=== PATIENT | female | born 1990 | race Caucasian/White ===

== ENCOUNTER 2016-07-29 19:43 | Emergency (ER) | payer MEDICAID, OTHER ==
[~2016-07-29] VITALS: Ht 170.2 cm; Wt 75.0 kg
[2016-07-29 19:45] VITALS: BP 131/79; PULSE 92; RESP 16; TEMP 98; O2SAT 100
--- NOTE | 2016-07-29 21:23 | PD ---
HPI Chief Complaint: Back/ Neck Pain or Injury Time Seen by Provider: 21:18 Travel History International Travel<30 days: No Contact w/Intl Traveler<30days: No Traveled to known affect area: No History of Present Illness HPI 26-year-old white female with a 16 week IUP presents to emergency department with complaints of tailbone pain after a fall on Friday. She states that she was on her daughter's however board when she lost her balance falling onto her buttocks. Since then she's had pain in her tailbone. She denies any abdominal pain. No nausea vomiting. No leakage of fluid or vaginal bleeding. She states that she has had normal movement. No complications of the . No focal numbness, tingling or weakness. Pain is mild to moderate. More severe with sitting for long appears a time. PFSH Past Medical History Medical History: Denies Significant Hx Tetanus Vaccination: < 5 Years ?: Past Surgical History Narrative Surgical Social History Alcohol Use: No Tobacco Use: Yes Review of Systems Except as stated in HPI: all other systems reviewed are Neg Physical Exam Narrative GENERAL: Well-developed, well-nourished in no apparent distress. Nontoxic appearing. HEAD: Normocephalic, atraumatic. EYES: Pupils equal round and reactive. Extraocular motions intact. No scleral icterus. No injection or drainage. ENT: Nose clear. Throat without erythema, tonsillar hypertrophy or exudate. Uvula midline. Airway patent. NECK: Trachea midline. Supple, nontender, moves head freely. No central bony tenderness or spasm. CARDIOVASCULAR: Regular rate and rhythm without murmurs, gallops, or rubs. RESPIRATORY: Clear to auscultation. Breath sounds equal bilaterally. No wheezes , rales, or rhonchi. GASTROINTESTINAL: Abdomen soft, non-tender, gravid uterus. No guarding. EXTREMITIES: No clubbing, cyanosis, or edema. No joint tenderness. BACK: Tender in the lower sacrum without deformity. No flank tenderness. No saddle anesthesia. No thoracic or lumbar tenderness NEUROLOGICAL: Awake, alert and oriented x 3 .Cranial nerves grossly intact. Motor and sensory grossly within normal limits. Normal speech. Data Data Last Documented VS Vital Signs Date Time Temp Pulse Resp B/P Pulse Ox O2 Delivery O2 Flow Rate FiO2 07/29/16 19:45 98.0 92 16 131/79 100 Room Air [facility] Medical Decision Making Medical Screen Exam Complete: Yes Emergency Medical Condition: Yes Medical Record Reviewed: Yes Differential Diagnosis MDM: High Differential diagnoses: Fracture, sprain, strain, dislocation, contusion, neurovascular injury Narrative Course This is a 26-year-old female who fell on her buttocks on Friday. Clinically I suspect she has a coccyx fracture. Within early x-rays are not indicated. Opiates are not indicated. She is advised to use a doughnut and take Tylenol. Patient states understanding. This is coccyx fracture-clinical Diagnosis Primary Impression: cOCCYX FRACTURE-CLINICAL Patient Instructions: General Instructions Additional Instructions: Rest. Ice for the next 3 days followed by heat . Tylenol. Jitendra as discussed.. Follow-up with your OB doctor in one week. Return to the ER for emergencies. Med/Other Pt SpecificInfo: No Meds Exist/No RX given Disposition: 01 DISCHARGE HOME Condition: Stable Vega Marcial Jul 29, 2016 21:23
== END 2016-07-29 21:34 | disposition home or self-care (01) ==
LOC: NEPB 19:43
DX: O9A.212 Injury, poisoning and certain other consequences of external causes complicating pregnancy, second trimester (principal); S32.2XXA Fracture of coccyx, initial encounter for closed fracture; V00.181A Fall from other rolling-type pedestrian conveyance, initial encounter; Z3A.16 16 weeks gestation of pregnancy
CPT/HCPCS: 99283

== ENCOUNTER 2016-10-30 13:27 | Emergency (ER) | payer MEDICAID ==
[~2016-10-30] VITALS: Ht 170.2 cm; Wt 70.0 kg
[2016-10-30 13:28] VITALS: BP 139/70; PULSE 63; RESP 16; TEMP 98.6; O2SAT 96
--- NOTE | 2016-10-30 13:45 | PD ---
Physical Exam Time Seen by Provider: 13:43 Narrative 26yo F c/o sore throat, congestion, cough x 4 days. Denies fever. Kids are sick too. Hx Asthma. Patient seen in triage. VS reviewed. Awaiting bed placement. Data Data Last Documented VS Vital Signs Date Time Temp Pulse Resp B/P Pulse Ox O2 Delivery O2 Flow Rate FiO2 10/30/16 13:28 98.6 63 16 139/70 96 Room Air MDM Supervised Visit with EVELYN: No Scripts No Active Prescriptions or Reported Meds Heidi Zhang Oct 30, 2016 13:45
--- NOTE | 2016-10-30 14:31 | PD ---
HPI . cold symptoms, cough and congestion for 4 days Chief Complaint: Cold / Flu Symptoms Time Seen by Provider: 14:28 Travel History International Travel<30 days: No Contact w/Intl Traveler<30days: No Traveled to known affect area: No History of Present Illness HPI 26-year-old female who is currently breast-feeding her 6-week-old baby here with complaints of cold symptoms, cough, facial pressure and congestion for the past 4 days. Patient tells me that several other family members are sick and she thinks she may have picked it up from them. She denies any fever or chills. She is a smoker, but tells me she is trying to cut down. PFSH Past Medical History Respiratory: Yes (ASTHMA) ?: Not LMP: 10/30/16 Social History Alcohol Use: No Tobacco Use: Yes Substance Use: No Allergies-Medications (Allergen,Severity, Reaction): Coded Allergies: Augmentin (Verified Allergy, Severe, Anaphylaxis, 10/30/16) Naproxen (Verified Allergy, Severe, Anaphylaxis, 10/30/16) Penicillin (Verified Allergy, Severe, Anaphylaxis, 10/30/16) Reported Meds & Prescriptions Reported Meds & Active Scripts Active Proair Hfa 8.5 GM Inh (Albuterol Sulfate) 90 Mcg/Act Aer 2 Puff INH Q6H PRN 108 mcg/actuation Zithromax Z-Chintan (Azithromycin) 250 Mg Dspk 250 Mg PO DIRECTED 500 MG (2 tabs) day 1, then 1 tab days 2-5. Prednisone 50 Mg Tab 50 Mg PO DAILY Reported [advair ] Review of Systems General / Constitutional: No: Fever Eyes: No: Visual changes HENT: Positive: Congestion, No: Headaches Cardiovascular: No: Chest Pain or Discomfort Respiratory: Positive: Cough, Wheezing, No: Shortness of Breath Gastrointestinal: No: Abdominal Pain Genitourinary: No: Dysuria Musculoskeletal: No: Pain Skin: No Rash Neurologic: No: Weakness Psychiatric: No: Depression Endocrine: No: Polydipsia Hematologic/Lymphatic: No: Easy Bruising Physical Exam Narrative GENERAL: AAO x 3, no acute distress, Well-nourished, well-developed patient. SKIN: Warm and dry. No visible rashes or bruising. HEAD: Normocephalic and atraumatic. EYES: No scleral icterus. No injection or drainage. EOM intact, PERRLA ENT: No nasal drainage noted. Mucous membranes pink. Airway patent. TM clear effusions b/l, + frontal and maxillary sinus tenderness. No oropharynx abnormality NECK: Supple, trachea midline. No JVD. No lymphadenopathy CARDIOVASCULAR: Regular rate and rhythm without murmurs, gallops, or rubs. RESPIRATORY: Breath sounds equally diminished bilaterally, expiratory wheezing very mild on exam, no rhonchi or Rales GASTROINTESTINAL: Visual inspection normal EXTREMITIES: No cyanosis or edema. BACK: Nontender without obvious deformity. No CVA tenderness. PSYCH: AAO x 3, normal affect. Data Data Last Documented VS Vital Signs Date Time Temp Pulse Resp B/P Pulse Ox O2 Delivery O2 Flow Rate FiO2 10/30/16 14:35 98.5 65 12 146/85 96 Room Air MDM Medical Decision Making Medical Screen Exam Complete: Yes Emergency Medical Condition: Yes Medical Record Reviewed: Yes Differential Diagnosis Sinusitis, bronchitis, less likely pneumonia, less likely influenza, acute pharyngitis Narrative Course This is a 26-year-old female here with complaints of cold like symptoms and congestion for the past several days. On examination she appears to have an acute sinusitis along with acute bronchitis. She is currently breast-feeding and I've discussed the medications that the treatment plan with her. Although they are all noted as safe during , there is some risk associated with usage. I've discussed this with her. Advise follow-up with her primary care provider. Patient verbalized understanding of instructions, questions were answered, and thanked me for their care. I advised them if their condition worsens, please return to the nearest emergency room for further care. Diagnosis Primary Impression: Acute sinusitis Qualified Code: J01.90 - Acute non-recurrent sinusitis, unspecified location Additional Impression: Acute bronchitis Qualified Code: J20.9 - Acute bronchitis, unspecified organism Patient Instructions: General Instructions Additional Instructions: As we discussed the cough can last 6-8 weeks. Take medications as prescribed. If you are a smoker, try to quit. Follow up with your primary care provider. If you develop sudden onset or worsening of shortness or breath, please go to the nearest emergency room. Please return to emergency department if your symptoms return or worsen. Follow up with your primary care provider. Take medications as prescribed. As we discussed, these medications can cross into your breast milk. Please discuss further with the pharmacist. You may need to pump and dump. Med/Other Pt SpecificInfo: Prescription(s) given Scripts Albuterol 8.5 GM Inh (Proair Hfa 8.5 GM Inh)90 Mcg/Act Aer2 Puff INH Q6H PRN ( SHORTNESS OF BREATH) #1 INHALER Ref 0 108 mcg/actuation Prov:Itzel Bowman MD 10/30/16 Azithromycin (Zithromax Z-Chintan)250 Mg [id number] Mg PO DIRECTED #1 DSPK 500 MG (2 tabs) day 1, then 1 tab days 2-5. Prov:Itzel Bowman MD 10/30/16 Prednisone 50 Mg Tab50 Mg PO DAILY #5 TAB Prov:Itzel Bowman MD 10/30/16 Disposition: 01 DISCHARGE HOME Condition: Stable Madison Olsen Oct 30, 2016 14:31
[2016-10-30] MEDS ORDERED: advair (14:34)
[2016-10-30 14:35] VITALS: BP 146/85; PULSE 65; RESP 12; TEMP 98.5; O2SAT 96
[2016-10-30] MEDS ORDERED: PRED50 PO (14:38)
[2016-10-30] MEDS ORDERED: ALBUAER3 INH (14:38)
[2016-10-30] MEDS ORDERED: ZITHTAB PO (14:38)
== END 2016-10-30 15:09 | disposition home or self-care (01) ==
LOC: NEPD 13:27
DX: J01.90 Acute sinusitis, unspecified (principal); J20.9 Acute bronchitis, unspecified; Z72.0 Tobacco use
CPT/HCPCS: 99284

== ENCOUNTER 2016-12-07 13:22 | Emergency (ER) | payer MEDICAID ==
[~2016-12-07] VITALS: Ht 170.2 cm; Wt 72.5 kg
[~2016-12-07 13:22] MED LIST: ALBUAER3 INH; PRED50 PO; ZITHTAB PO; advair
[2016-12-07 13:24] VITALS: BP 125/96; PULSE 122; RESP 24; TEMP 98.1; O2SAT 97
--- NOTE | 2016-12-07 13:41 | PD ---
Physical Exam Date Seen by Provider: Dec 07, 2016 Time Seen by Provider: 13:39 Narrative 26 yr old female with history of asthma here with c/o chills, coughing with lots of mucous production. She also reports head pounding. SHe says her symptoms that started yesterday. She states she has been using so much of her albuterol she ran out of it. She denies any recent travel. Patient is 10 weeks post and . She is awaiting bed placement. Data Data Last Documented VS Vital Signs Date Time Temp Pulse Resp B/P Pulse Ox O2 Delivery O2 Flow Rate FiO2 12/07/16 13:24 98.1 122 24 125/96 97 Room Air [facility] Medical Record Reviewed: Yes Supervised Visit with EVELYN: Madison Snyder Dec 07, 2016 13:41
[2016-12-07] MEDS ORDERED: RESP: BUDESONIDE 0.5 MG/2 ML NEB NEB ONE (14:00)
[2016-12-07] MEDS ORDERED: methylPREDNISolone SOD SUCC 125 MG/2 ML VIAL IVP ONE (14:00)
[2016-12-07] MEDS ORDERED: SODIUM CHLORIDE 0.9% FLUSH 10 ML FLUSH IVF PRN (14:00)
[2016-12-07 14:10] VITALS: O2SAT 98
[2016-12-07 14:17] LABS: AUTOMATED NEUTROPHIL # 5.2 TH/MM3 (1.8-7.7); BASOPHIL # 0.1 TH/MM3 (0-0.2); BASOPHIL % 1.1 % (0.0-2.0); EOSINOPHIL # 0.9 TH/MM3 (0-0.4); EOSINOPHIL % 9.3 % (0.0-4.0); HEMO FLAGS DIFF FINAL; LYMPH % 23.8 % (9.0-44.0); LYMPHOCYTE # 2.2 TH/MM3 (1.0-4.8); MEAN CELL VOLUME 85.2 FL (80.0-100.0); MEAN CORPUSCULAR HEMOGLOBIN 28.1 PG (27.0-34.0); MONO % 9.9 % (0.0-8.0); NEUT % 55.9 % (16.0-70.0); PLATELET COUNT 294 TH/MM3 (150-450); RED BLOOD COUNT 4.81 MIL/MM3 (4.00-5.30); RED CELL DISTRIBUTION WIDTH 16.1 % (11.6-17.2); WHITE BLOOD COUNT 9.3 TH/MM3 (4.0-11.0)
--- NOTE | 2016-12-07 14:22 | PD ---
HPI Chief Complaint: Cold / Flu Symptoms Time Seen by Provider: 14:11 Travel History International Travel<30 days: No Contact w/Intl Traveler<30days: No Traveled to known affect area: No History of Present Illness HPI Patient is a 26-year-old female presented to emergency evaluation of shortness of breath, chest congestion, pain, subjective fevers and chills that started yesterday. Patient reports a history of asthma and states that her albuterol inhaler has not been working nor has her nebulizer treatments. She is 10 weeks , a current smoker. She denies any nausea, vomiting. PFSH Past Medical History Hx Anticoagulant Therapy: No Asthma: Yes Cardiovascular Problems: No Chemotherapy: No Cerebrovascular Accident: No Diabetes: No Tetanus Vaccination: < 5 Years ?: Not LMP: post 10 weeks Tubal Ligation: Yes Past Surgical History Section: Yes (x4) Social History Alcohol Use: No Tobacco Use: Yes Substance Use: No Allergies-Medications (Allergen,Severity, Reaction): Coded Allergies: Augmentin (Verified Allergy, Severe, Anaphylaxis, 10/30/16) Naproxen (Verified Allergy, Severe, Anaphylaxis, 10/30/16) Penicillin (Verified Allergy, Severe, Anaphylaxis, 10/30/16) Reported Meds & Prescriptions Reported Meds & Active Scripts Active Proair Hfa 8.5 GM Inh (Albuterol Sulfate) 90 Mcg/Act Aer 2 Puff INH Q6H PRN 108 mcg/actuation Review of Systems Except as stated in HPI: all other systems reviewed are Neg General / Constitutional: Positive: Fever (SUBJECTIVE), Chills HENT: No: Headaches Cardiovascular: Positive: Chest Pain or Discomfort, Tachycardia, Dyspnea on exertion Respiratory: Positive: Cough, Shortness of Breath, Wheezing, Pleuritic Pain Gastrointestinal: No: Nausea, Vomiting, Diarrhea, Abdominal Pain Musculoskeletal: No: Myalgias Physical Exam Narrative GENERAL: Well-developed, well-nourished, alert female. Resting in no acute distress. SKIN: Warm and dry. HEAD: Atraumatic. Normocephalic. EYES: Pupils equal and round. No scleral icterus. No injection or drainage. ENT: No nasal bleeding or discharge. Mucous membranes pink and moist. NECK: Trachea midline. No JVD. CARDIOVASCULAR: Tachycardic RESPIRATORY: Tachypneic, expiratory wheezing throughout. No nasal flaring, no retractions noted. GASTROINTESTINAL: Abdomen soft, non-tender, nondistended. Hepatic and splenic margins not palpable. MUSCULOSKELETAL: Extremities without clubbing, cyanosis, or edema. No obvious deformities. NEUROLOGICAL: Awake and alert. No obvious cranial nerve deficits. Motor grossly within normal limits. Five out of 5 muscle strength in the arms and legs. Normal speech. PSYCHIATRIC: Appropriate mood and affect; insight and judgment normal. Data Data Last Documented VS Vital Signs Date Time Temp Pulse Resp B/P Pulse Ox O2 Delivery O2 Flow Rate FiO2 12/07/16 14:10 98 Room Air 12/07/16 13:24 98.1 122 24 125/96 Orders Complete Blood Count With Diff (12/07/16 13:54) Comprehensive Metabolic Panel (12/07/16 13:54) Iv Access Insert/Monitor (12/07/16 13:54) Electrocardiogram (12/07/16 13:54) Ecg Monitoring (12/07/16 13:54) Oximetry (12/07/16 13:54) Oxygen Administration (12/07/16 13:54) Chest, Single Ap (12/07/16 13:54) Sodium Chloride 0.9% Flush (Ns Flush) (12/07/16 14:00) Methylprednisolone So Succ Inj (Solumedr (12/07/16 14:00) Albuterol-Ipratropium Neb (Duoneb Neb) (12/07/16 14:00) Budesonide Neb (Pulmicort Respule Neb) (12/07/16 14:00) Ct Pulmonary Angiogram (12/07/16 ) Labs Laboratory Tests Test 12/07/16 14:10 White Blood Count 9.3 TH/MM3 Red Blood Count 4.81 MIL/MM3 Hemoglobin 13.5 GM/DL Hematocrit 41.0 % Mean Corpuscular Volume 85.2 FL Mean Corpuscular Hemoglobin 28.1 PG Mean Corpuscular Hemoglobin 33.0 % Concent Red Cell Distribution Width 16.1 % Platelet Count 294 TH/MM3 Mean Platelet Volume 7.6 FL Neutrophils (%) (Auto) 55.9 % Lymphocytes (%) (Auto) 23.8 % Monocytes (%) (Auto) 9.9 % Eosinophils (%) (Auto) 9.3 % Basophils (%) (Auto) 1.1 % Neutrophils # (Auto) 5.2 TH/MM3 Lymphocytes # (Auto) 2.2 TH/MM3 Monocytes # (Auto) 0.9 TH/MM3 Eosinophils # (Auto) 0.9 TH/MM3 Basophils # (Auto) 0.1 TH/MM3 CBC Comment DIFF FINAL Differential Comment Sodium Level 138 MEQ/L Potassium Level 4.2 MEQ/L Chloride Level 106 MEQ/L Carbon Dioxide Level 26.2 MEQ/L Anion Gap 6 MEQ/L Blood Urea Nitrogen 9 MG/DL Creatinine 0.72 MG/DL Estimat Glomerular Filtration 96 ML/MIN Rate Random Glucose 91 MG/DL Calcium Level 9.4 MG/DL Total Bilirubin 0.6 MG/DL Aspartate Amino Transf 36 U/L (AST/SGOT) Alanine Aminotransferase 46 U/L (ALT/SGPT) Alkaline Phosphatase 66 U/L Total Protein 8.4 GM/DL Albumin 4.3 GM/DL MDM Medical Decision Making Medical Screen Exam Complete: Yes Emergency Medical Condition: Yes Interpretation(s) Vital Signs Date Time Temp Pulse Resp B/P Pulse Ox O2 Delivery O2 Flow Rate FiO2 12/07/16 13:24 98.1 122 24 125/96 97 Room Air Differential Diagnosis Pulmonary embolism versus cardiomyopathy versus asthma exacerbation versus pneumonia versus other Narrative Course Patient is a 26-year-old female presenting for evaluation of shortness of breath , wheezing. Patient is a 10 week smoker. Included in the differential would be cardiomyopathy, pulmonary embolism, and more likely asthma exacerbation. EKG shows sinus rhythm with sinus arrhythmia, right atrial enlargement, possible left atrial enlargement, heart rate 88 Labs and imaging were ordered and pending. Chest x-ray shows no acute disease, labs are unremarkable. CT pulmonary angiogram pending. 1600- patient states she needed to leave to bring her to work. Discussed with patient the possible differential so we were concerned regarding pulmonary embolism cardiomyopathy. Discussed risks of leaving with patient. She states that she would come back to have the testing completed. She would need to check back and that she would be leaving AGAINST MEDICAL ADVICE at this time. She verbalized understanding of this. AMA: The risks of leaving against medical advice without further evaluation treatment were discussed with the patient. These risks include cardiac dysfunction, cardiac dysrhythmia, possible heart attack, possible stroke or . The patient indicated understanding of these risks and appeared to have the capacity to make this decision. Diagnosis Primary Impression: Left against medical advice Disposition: AGAINST MEDICAL ADVICE Marge Zapata Dec 07, 2016 14:21
[2016-12-07] MEDS: RESP: ALBUTEROL 2.5 MG/IPRATROPIUM 0.5 MG NEB (SCH) INH (14:29)
[2016-12-07 14:37] LABS: ANION GAP 6 MEQ/L (5-15); AST (GOT) 36 U/L (15-37); BICARBONATE 26.2 MEQ/L (21.0-32.0); BLOOD UREA NITROGEN 9 MG/DL (7-18); CHLORIDE 106 MEQ/L (98-107); GLOMERULAR FILTRATION RATE 96 ML/MIN (>89); POTASSIUM 4.2 MEQ/L (3.5-5.1); SODIUM (NA) 138 MEQ/L (136-145)
[2016-12-07 14:38] LABS: ALT (GPT) 46 U/L (10-53)
[2016-12-07 14:40] LABS: ALKALINE PHOSPHATASE 66 U/L (45-117); TOTAL BILIRUBIN ADULT 0.6 MG/DL (0.2-1.0)
--- NOTE | 2016-12-07 14:51 | RADRPT ---
EXAM DATE/TIME: 12/07/2016 14:21 [place] COMPARISON: No previous studies available for comparison. INDICATIONS : Short of breath, chest tightness, cough. MEDICAL HISTORY : Asthma SURGICAL HISTORY : None. ENCOUNTER: Initial ACUITY: 4 - 6 days PAIN SCORE: 2/10 LOCATION: Bilateral upper chest FINDINGS: The lungs are clear without infiltrate, nodule, or mass. There is no appreciable pleural effusion fo r technique. Heart and mediastinum are unremarkable. CONCLUSION: No acute cardiopulmonary disease. Evelio Holbrook MD on December 07, 2016 at 14:49 Board Certified Radiologist. This report was verified electronically.
[2016-12-07] MEDS ORDERED: BENZ100 PO (17:57)
[2016-12-07] MEDS ORDERED: ZITHTAB PO (17:57)
[2016-12-07] MEDS ORDERED: PRED50 PO (17:57)
[2016-12-07] MEDS ORDERED: VENTAER INH (17:57)
== END 2016-12-07 16:09 | disposition left against medical advice (07) ==
LOC: NEPD 13:22
DX: R06.02 Shortness of breath (principal); J45.909 Unspecified asthma, uncomplicated; O99.335 Smoking (tobacco) complicating the puerperium; F17.210 Nicotine dependence, cigarettes, uncomplicated
CPT/HCPCS: 71010; 80053; 85025; 94640; 94664; 96374; 99285; J2930; J7626

== ENCOUNTER 2016-12-07 17:22 | Emergency (ER) | payer MEDICAID ==
[~2016-12-07] VITALS: Ht 170.2 cm; Wt 75.0 kg
[2016-12-07 17:23] VITALS: BP 134/76; PULSE 97; RESP 20; TEMP 98.4; O2SAT 95
--- NOTE | 2016-12-07 17:49 | PD ---
HPI . coughing, congestion Chief Complaint: Cold / Flu Symptoms Time Seen by Provider: 17:46 Travel History International Travel<30 days: No Contact w/Intl Traveler<30days: No Traveled to known affect area: No History of Present Illness HPI This is a 26-year-old female who I initially saw earlier today in triage with a history of asthma complaining of chills, coughing with a lot of mucus production , and headache. Apparently patient had to leave due to some personal reasons and she is now back for care. Patient tells me she's been using so much of her albuterol inhaler that she ran out of it. Patient is 10 weeks and breast-feeding. She was seen here and had labs and cxr done. She has no new issues. PFSH Past Medical History Hx Anticoagulant Therapy: No Asthma: Yes Cardiovascular Problems: No Chemotherapy: No Cerebrovascular Accident: No Diabetes: No Tubal Ligation: Yes Past Surgical History Section: Yes (x4) Social History Alcohol Use: No Tobacco Use: Yes Substance Use: No Allergies-Medications (Allergen,Severity, Reaction): Coded Allergies: Augmentin (Verified Allergy, Severe, Anaphylaxis, 10/30/16) Naproxen (Verified Allergy, Severe, Anaphylaxis, 10/30/16) Penicillin (Verified Allergy, Severe, Anaphylaxis, 10/30/16) Reported Meds & Prescriptions Reported Meds & Active Scripts Active Tessalon Perles (Benzonatate) 100 Mg Cap 100 Mg PO TID PRN 5 Days Ventolin Hfa 18 GM Inh (Albuterol Sulfate) 90 Mcg/Act Aer 2 Puff INH Q6H PRN Prednisone 50 Mg Tab 50 Mg PO DAILY Zithromax Z-Chintan (Azithromycin) 250 Mg Dspk 250 Mg PO DIRECTED 500 MG (2 tabs) day 1, then 1 tab days 2-5. Proair Hfa 8.5 GM Inh (Albuterol Sulfate) 90 Mcg/Act Aer 2 Puff INH Q6H PRN 108 mcg/actuation Review of Systems General / Constitutional: No: Fever Eyes: No: Visual changes HENT: Positive: Headaches, Congestion Cardiovascular: No: Chest Pain or Discomfort Respiratory: Positive: Cough, No: Shortness of Breath Gastrointestinal: No: Abdominal Pain Genitourinary: No: Dysuria Musculoskeletal: No: Pain Skin: No Rash Neurologic: No: Weakness Psychiatric: No: Depression Endocrine: No: Polydipsia Hematologic/Lymphatic: No: Easy Bruising Physical Exam Narrative GENERAL: AAO x 3, no acute distress, Well-nourished, well-developed patient. SKIN: Warm and dry. No visible rashes or bruising. HEAD: Normocephalic and atraumatic. EYES: No scleral icterus. No injection or drainage. ENT: No nasal drainage noted. Mucous membranes pink. Airway patent. Mild posterior pharynx erythema, bulging TMs bilaterally with clear effusion. Maxillary sinus tenderness on palpation NECK: Supple, trachea midline. No JVD. No lymphadenopathy CARDIOVASCULAR: Regular rate and rhythm without murmurs, gallops, or rubs. RESPIRATORY: Breath sounds equally diminished bilaterally, rhonchi scattered throughout along with wheezing. GASTROINTESTINAL: Abdomen soft, non-tender, nondistended. EXTREMITIES: No cyanosis or edema. No edema the lower extremities. Pulses intact. BACK: No obvious deformity. No CVA tenderness. NEURO: CN II-12 intact, PSYCH: AAO x 3, normal affect. Data Data Last Documented VS Vital Signs Date Time Temp Pulse Resp B/P Pulse Ox O2 Delivery O2 Flow Rate FiO2 12/07/16 17:41 12/07/16 17:23 98.4 97 20 95 Room Air MDM Medical Decision Making Medical Screen Exam Complete: Yes Emergency Medical Condition: Yes Medical Record Reviewed: Yes Differential Diagnosis Acute sinusitis, bronchitis, less likely pneumonia, less likely pulmonary emboli Narrative Course 26-year-old female here with what appears to be sinusitis and bronchitis. She already received some workup earlier today. Her labs are unremarkable. She does not have any elevated white count. Her chest x-ray was normal and no acute findings. She had been recommended to stay for further workup, but had to leave due to personal issues. I've explained to patient that I do not believe she has a blood clot as her symptomatology is very consistent with sinusitis and bronchitis. She has distinct rhonci and wheezing on exam. She does not report shortness of breath ath this time nor any at rest. Her issue is coughing that makes it hard for her to catch her breath. Her vitals are stable. She has rhonchi scattered throughout all lung aguilar along with some wheezing. She does have a history of asthma, but is in no signs of respiratory distress. We had a discussion regarding antibiotic treatment and breast-feeding. Patient tells me that she will pump and dump as she wants the best medications for getting better. She will return to the emergency department if her condition does not improve. Patient verbalized understanding of instructions, questions were answered, and thanked me for their care. I advised them if their condition worsens, please return to the nearest emergency room for further care. Diagnosis Primary Impression: Acute sinusitis Qualified Code: J01.90 - Acute sinusitis, recurrence not specified, unspecified location Additional Impression: Acute bronchitis Qualified Code: J20.9 - Acute bronchitis, unspecified organism Patient Instructions: General Instructions Additional Instructions: Pump and dump some of these medications can crossover into the breast milk. Return to the emergency department for any worsening of her condition. Patient verbalized understanding of instructions, questions were answered, and thanked me for their care. I advised them if their condition worsens, please return to the nearest emergency room for further care. Med/Other Pt SpecificInfo: Prescription(s) given Scripts Benzonatate (Tessalon Perles)100 Mg [id number] Mg PO TID PRN (COUGH) 5 Days Ref 0 Prov:Ephraim Cantu MD 12/07/16 Albuterol 18 GM Inh (Ventolin Hfa 18 GM Inh)90 Mcg/Act Aer2 Puff INH Q6H PRN ( SHORTNESS OF BREATH) #1 INHALER Ref 0 Prov:Ephraim Cantu MD 12/07/16 Prednisone 50 Mg Tab50 Mg PO DAILY #5 TAB Prov:Ephraim Cantu MD 12/07/16 Azithromycin (Zithromax Z-Chintan)250 Mg [id number] Mg PO DIRECTED #1 DSPK 500 MG (2 tabs) day 1, then 1 tab days 2-5. Prov:Ephraim Cantu MD 12/07/16 Disposition: 01 DISCHARGE HOME Condition: Stable Madison Olsen Dec 07, 2016 17:49
[2016-12-07] MEDS ORDERED: VENTAER INH (17:57)
[2016-12-07] MEDS ORDERED: BENZ100 PO (17:57)
[2016-12-07] MEDS ORDERED: PRED50 PO (17:57)
[2016-12-07] MEDS ORDERED: ZITHTAB PO (17:57)
== END 2016-12-07 18:27 | disposition home or self-care (01) ==
LOC: NEPK 17:22
DX: J01.90 Acute sinusitis, unspecified (principal); J20.9 Acute bronchitis, unspecified
CPT/HCPCS: 99284

== ENCOUNTER 2017-02-22 18:36 | Emergency (ER) | payer MEDICAID ==
[~2017-02-22] VITALS: Ht 170.2 cm; Wt 70.0 kg
[~2017-02-22 18:36] MED LIST changes: +BENZ100 PO; +VENTAER INH; -advair
[2017-02-22 18:37] VITALS: BP 154/76; PULSE 101; RESP 14; TEMP 98.4; O2SAT 97
--- NOTE | 2017-02-22 20:11 | PD ---
HPI Chief Complaint: Injury Time Seen by Provider: 20:04 Travel History International Travel<30 days: No Contact w/Intl Traveler<30days: No Traveled to known affect area: No History of Present Illness HPI 26-year-old white female presents to emergency car with complains of right foot pain for 1 week. She states that she had hit her foot on the couch one week ago in the dark. She has had persistent pain in her right second metatarsal and second toe since then. She states the pain is mild to moderate. Worse weightbearing. Some relief with elevation. She is currently breast-feeding. PFSH Past Medical History Narrative Medical Asthma Hx Anticoagulant Therapy: No Asthma: Yes Cardiovascular Problems: No Chemotherapy: No Cerebrovascular Accident: No Diabetes: No Diminished Hearing: No Tetanus Vaccination: < 5 Years ?: Not Tubal Ligation: Yes Past Surgical History Narrative Surgical Section: Yes (x4) Social History Alcohol Use: No Tobacco Use: Yes Substance Use: No Allergies-Medications (Allergen,Severity, Reaction): Coded Allergies: amoxicillin (Unverified Allergy, Severe, Anaphylaxis, 01/07/17) clavulanic acid (Unverified Allergy, Severe, Anaphylaxis, 01/07/17) naproxen (Unverified Allergy, Severe, Anaphylaxis, 01/07/17) penicillin G (Unverified Allergy, Severe, Anaphylaxis, 01/07/17) Reported Meds & Prescriptions Reported Meds & Active Scripts Active Tessalon Perles (Benzonatate) 100 Mg Cap 100 Mg PO TID PRN 5 Days Ventolin Hfa 18 GM Inh (Albuterol Sulfate) 90 Mcg/Act Aer 2 Puff INH Q6H PRN Prednisone 50 Mg Tab 50 Mg PO DAILY Zithromax Z-Chintan (Azithromycin) 250 Mg Dspk 250 Mg PO DIRECTED 500 MG (2 tabs) day 1, then 1 tab days 2-5. Proair Hfa 8.5 GM Inh (Albuterol Sulfate) 90 Mcg/Act Aer 2 Puff INH Q6H PRN 108 mcg/actuation Review of Systems Except as stated in HPI: all other systems reviewed are Neg Musculoskeletal: Positive: Arthralgias, Limited ROM, Edema, Pain Physical Exam Narrative GENERAL: This is a well-nourished, well-developed patient, in no apparent distress. Patient is breast-feeding in the examination room. SKIN: No rashes, ecchymoses or lesions. Warm and dry. HEAD: Atraumatic. Normocephalic. EYES: PERRL, EOMI, no discharge or injection. No scleral icterus. EARS: Clear NOSE: Nasal turbinates appear normal. THROAT: Mucosa pink and moist. Airway patent. NECK: Trachea midline. supple, moves head freely. LUNGS: Clear to auscultation. CV: Regular in rhythm. ABDOMEN: Soft nontender. EXT: No clubbing cyanosis . Examination of the right foot reveals tenderness to the distal third of the second metatarsal and the proximal second toe. The skin is intact. Minimal edema. No erythema. No skin breakdown. She has intact sensation with good distal pulses. Good Refill. Walks with a mildly antalgic gait. Data Data Last Documented VS Vital Signs Date Time Temp Pulse Resp B/P (MAP) Pulse Ox O2 Delivery O2 Flow Rate FiO2 02/22/17 18:37 98.4 101 14 154/76 (102) 97 Orders Orders Foot, Complete ([id number]) (02/22/17 20:08) Splint Or Brace Apply/Monitor (02/22/17 20:50) Crutches (02/22/17 20:50) MDM Medical Decision Making Medical Screen Exam Complete: Yes Emergency Medical Condition: Yes Medical Record Reviewed: Yes Interpretation(s) Right foot: There is a nondisplaced fracture of the second metatarsal head Differential Diagnosis MDM: High Differential diagnoses: Fracture, sprain, strain, dislocation, contusion, neurovascular injury Narrative Course X-ray reveals a fracture of the second metatarsal head. Patient is placed in a Deleon compression dressing and postop shoe with crutches. She is advised to follow-up with a clay roaster or orthopedist. Diagnosis Primary Impression: Fracture of second metatarsal bone of right foot Qualified Codes: S92.324A - Nondisplaced fracture of second metatarsal bone, right foot, initial encounter for closed fracture Patient Instructions: General Instructions Additional Instructions: Rest. Elevation. Sharif wrap and crutches. No weight-bearing Tylenol for pain. Follow-up with an orthopedist or or a clay roaster in the next 3-5 days.. Return to the ER if any problems Disposition: 01 DISCHARGE HOME Condition: Stable Vega Marcial Feb 22, 2017 20:11
--- NOTE | 2017-02-22 20:48 | RADRPT ---
EXAM DATE/TIME: 02/22/2017 20:22 [facility] COMPARISON: No previous studies available for comparison. INDICATIONS : Right foot pain. Patient stubbed her toe on a couch. Pain near the second metatarsel. MEDICAL HISTORY : None. SURGICAL HISTORY : None. ENCOUNTER: Initial ACUITY: 1 week PAIN SCORE: 10/10 LOCATION: Right foot. FINDINGS: Three-view examination of the foot demonstrates normal mineralization of the osseous structures. Nor mal alignment of the osseous structures. On the frontal and oblique view, there is a horizontal luce ncy in the subcortical region of the distal 2nd metatarsal bone; this could represent a fracture. Th e remainder of the osseous structures are intact. Incidental note of a large os tibiale externum. CONCLUSION: Horizontal subcortical lucency in the distal 2nd metatarsal head could represent a fracture or Freibe rg's disease (avascular necrosis). Kirt Ba MD on February 22, 2017 at 20:45 Board Certified Radiologist. This report was verified electronically.
[2017-02-22] MEDS ORDERED: ACETAMINOPHEN 325 MG TAB PO ONE (21:15)
== END 2017-02-22 21:40 | disposition home or self-care (01) ==
LOC: NEPK 18:36
DX: S92.324A Nondisplaced fracture of second metatarsal bone, right foot, initial encounter for closed fracture (principal); J45.909 Unspecified asthma, uncomplicated; W22.03XA Walked into furniture, initial encounter; Z72.0 Tobacco use; Z79.899 Other long term (current) drug therapy; Z88.0 Allergy status to penicillin; Z88.8 Allergy status to other drugs, medicaments and biological substances
CPT/HCPCS: 73630; 99283; E0113; L3260

== ENCOUNTER 2017-06-23 19:07 | Emergency (ER) | payer MEDICAID ==
[~2017-06-23] VITALS: Ht 170.2 cm; Wt 75.0 kg
[2017-06-23 19:10] VITALS: BP 134/82; PULSE 100; RESP 16; TEMP 103; O2SAT 96
[2017-06-23] MEDS ORDERED: ACETAMINOPHEN 500 MG CPLT PO ONE (20:00)
[2017-06-23] MEDS ORDERED: ONDANSETRON ODT 4 MG TAB PO ONE (20:00)
--- NOTE | 2017-06-23 20:05 | PD ---
HPI Chief Complaint: Cold / Flu Symptoms Time Seen by Provider: 19:53 Travel History International Travel<30 days: No Contact w/Intl Traveler<30days: No Traveled to known affect area: No History of Present Illness HPI This is a 26-year-old female here with flulike illness since this morning. She is reporting fever, body ache, sore throat, cough. Symptoms severity is moderate. Fevers are reduced with OTC Tylenol. Last dose of Tylenol approximately 8 hours ago. Patient is also reporting nausea with one episode of nonbloody emesis several hours ago. She denies headache, neck pain, chest pain, shortness of breath, abdominal pain, diarrhea, vaginal discharge or dysuria. PFSH Past Medical History Hx Anticoagulant Therapy: No Asthma: Yes Cardiovascular Problems: No Chemotherapy: No Cerebrovascular Accident: No Diabetes: No Diminished Hearing: No Respiratory: Yes (asthma) ?: Not Tubal Ligation: Yes Past Surgical History Section: Yes (x4) Social History Alcohol Use: No Tobacco Use: Yes Substance Use: No Allergies-Medications (Allergen,Severity, Reaction): Coded Allergies: amoxicillin (Verified Allergy, Severe, Anaphylaxis, 02/22/17) clavulanic acid (Verified Allergy, Severe, Anaphylaxis, 02/22/17) naproxen (Verified Allergy, Severe, Anaphylaxis, 02/22/17) penicillin G (Verified Allergy, Severe, Anaphylaxis, 02/22/17) Reported Meds & Prescriptions Reported Meds & Active Scripts Active Tamiflu (Oseltamivir Phosphate) 75 Mg Cap 75 Mg PO BID 5 Days Azithromycin 250 Mg Tab 250 Mg PO DIRECTED Take 2 tabs (500 mg) on day 1 then 1 tab daily x 4 days. Tessalon Perles (Benzonatate) 100 Mg Cap 100 Mg PO TID PRN 5 Days Ventolin Hfa 18 GM Inh (Albuterol Sulfate) 90 Mcg/Act Aer 2 Puff INH Q6H PRN Prednisone 50 Mg Tab 50 Mg PO DAILY Zithromax Z-Chintan (Azithromycin) 250 Mg Dspk 250 Mg PO DIRECTED 500 MG (2 tabs) day 1, then 1 tab days 2-5. Proair Hfa 8.5 GM Inh (Albuterol Sulfate) 90 Mcg/Act Aer 2 Puff INH Q6H PRN 108 mcg/actuation Review of Systems Except as stated in HPI: all other systems reviewed are Neg General / Constitutional: Positive: Fever Eyes: No: Visual changes HENT: Positive: Sore Throat, No: Headaches Cardiovascular: No: Chest Pain or Discomfort Respiratory: Positive: Cough Gastrointestinal: No: Abdominal Pain Genitourinary: No: Dysuria Musculoskeletal: Positive: Myalgias Skin: No Rash Neurologic: No: Weakness Physical Exam Narrative GENERAL: Alert and nontoxic appearing 26-year-old female. SKIN: Warm and dry. No rash. HEAD: Normocephalic. EYES: No injection or drainage. Ears/nose/throat: Mild pharyngeal erythema with mild tonsillar hypertrophy and exudate. Uvula is midline. Airway is patent. NECK: Supple, trachea midline. No meningismus CARDIOVASCULAR: Regular rate and rhythm. Mild tachycardia rate in the low 100s RESPIRATORY: Breath sounds equal bilaterally. No accessory muscle use. No wheezes rales or rhonchi. GASTROINTESTINAL: Abdomen soft, non-tender, nondistended. No rebound or guarding. MUSCULOSKELETAL: No cyanosis, or edema. BACK: Nontender without obvious deformity. No CVA tenderness. Data Data Last Documented VS Vital Signs Date Time Temp Pulse Resp B/P (MAP) Pulse Ox O2 Delivery O2 Flow Rate FiO2 06/23/17 21:13 06/23/17 20:45 100.8 06/23/17 19:10 100 16 96 Room Air Orders Orders Influenzae A/B Antigen (06/23/17 19:56) Ondansetron Odt (Zofran Odt) (06/23/17 20:00) Acetaminophen (Tylenol) (06/23/17 20:00) Group A Rapid Strep Screen (06/23/17 20:20) Strep Culture (Group A) (06/23/17 20:30) MDM Medical Decision Making Medical Screen Exam Complete: Yes Emergency Medical Condition: Yes Differential Diagnosis Influenza, strep pharyngitis, pneumonia Narrative Course This is a 26-year-old female here with flulike illness since this morning. Despite having 103 fever she is nontoxic-appearing. She does have exudative tonsillitis. She was medicated with Tylenol. Influenza: Negative Strep screen: Negative Reexam: Patient was reassessed. Temperature down to 100.8 she reports symptom improvement. Findings were discussed with patient. Despite being negative for influenza and strep I highly suspect that this is influenza. Given the fact that she has exudative tonsillitis she will also be covered for strep pharyngitis. Patient is requesting treatment with Tamiflu. She was encouraged to stay well hydrated and use Tylenol for fever control. She agrees to follow up with her primary doctor or or return if she develops new or worsening symptoms. Patient is stable and ready for discharge. Diagnosis Primary Impression: Exudative tonsillitis Additional Impression: Influenza-like illness Referrals: Primary Care Physician Additional Instructions: Tylenol or ibuprofen as needed for fever and pain. Antibiotics as prescribed. Stay well hydrated by drinking plenty of fluids Gatorade. Follow-up with her primary doctor. Scripts Oseltamivir (Tamiflu) 75 Mg Cap 75 MG PO BID for Mgmt Viral Infection for 5 Days, #10 CAP 0 Refills Prov: Latasha Cole 06/23/17 Azithromycin (Azithromycin) 250 Mg Tab 250 MG PO DIRECTED for Infection, #6 TAB 0 Refills Take 2 tabs (500 mg) on day 1 then 1 tab daily x 4 days. Prov: Latasha Cole 06/23/17 Disposition: 01 DISCHARGE HOME Condition: Stable Latasha Cole Jun 23, 2017 20:05
[2017-06-23 20:45] VITALS: TEMP 100.8
[2017-06-23] MEDS ORDERED: AZIT250T3 PO (20:55)
[2017-06-23] MEDS ORDERED: OSEL75 PO (21:03)
== END 2017-06-23 21:20 | disposition home or self-care (01) ==
LOC: NEPK 19:07
DX: J03.00 Acute streptococcal tonsillitis, unspecified (principal); J45.909 Unspecified asthma, uncomplicated; Z72.0 Tobacco use; Z88.1 Allergy status to other antibiotic agents; Z88.0 Allergy status to penicillin; Z88.8 Allergy status to other drugs, medicaments and biological substances
CPT/HCPCS: 87081; 87804; 87880; 99284